=== PATIENT | male | born 1970 | race Caucasian/White ===

== ENCOUNTER 2018-07-02 06:21 | Day surgery (SDC) | payer OTHER ==
[2018-07-01 13:17] VITALS: BMI 27.1
[2018-07-02] MEDS ORDERED: MIDAZOLAM HCL 2 MG/2 ML SINGLE DOSE VIAL ONE ×3 (07:18→07:35)
[2018-07-02] MEDS ORDERED: PROPOFOL 20 ML ONE ×2 (07:35)
[2018-07-02] MEDS ORDERED: SUCCINYLCHOLINE CHLORIDE 200 MG/10 ML VIAL ONE (07:35)
--- NOTE | 2018-07-02 08:15 | HP ---
[facility]ellite [facility] - Chief Complaint Chief Complaint: right shoulder pain - Past Medical History Allergies/Adverse Reactions: Allergies Allergy/AdvReac Type Severity Reaction Status Date / Time Penicillins Allergy Unknown Verified 07/02/18 07:15 - Current Medications Current Medications: Home Medications Medication Instructions Recorded Alprazolam [Xanax] 0.25 mg PO PRN PRN 07/01/18 Simvastatin 40 mg PO HS 07/01/18 Satellite Physical Exam - Physical Examination Vital Signs: Vital Signs Period Temp Pulse Resp BP Sys/Garcia Pulse Ox Last 24 Hr 98.2 F-98.2 F 64-64 20-20 121-121/58-58 95 General Appearance: Well Nourished, Well Developed, Alert & Oriented x3 ENT: Clear Lung: Normal air movement Heart: Regular rate & rhythm Extremities: Other (right shoulder- + ttp, decr rom, + neer, + thompson, + empty can, nvi MRI + rct, labral tear) Neurological: Intact, Alert, Oriented Satellite Impression/Plan - Impression/Plan Impression: right shoulder impingement Operative Procedure: right shoulder arthroscopy with TAMMY MARIN Date to be Performed: 07/02/18
[2018-07-02] MEDS ORDERED: CLINDAMYCIN 900 MG PREMIX BAG IVPB ONE (08:28)
[2018-07-02] MEDS ORDERED: ONDANSETRON 4 MG/2 ML VIAL IVPUSH PRN (08:32)
[2018-07-02] MEDS ORDERED: ACETAMINOPHEN 1000 MG/100 ML VIAL (NON FORMULARY) IVPB ONE (08:32)
[2018-07-02] MEDS ORDERED: oxyCODONE HCL 5 MG TABLET PO PRN ×2 (08:32)
[2018-07-02] MEDS ORDERED: DEXAMETHASONE SOD PHOSPHATE 4 MG/1 ML VIAL ONE (08:35)
[2018-07-02] MEDS ORDERED: CLINDAMYCIN PHOSPHATE 600 MG/4 ML VIAL ONE (08:35)
[2018-07-02] MEDS ORDERED: LACTATED RINGERS SOLUTION 1,000 ML IV SCH (08:45)
[2018-07-02] MEDS ORDERED: ACETAMINOPHEN INJECTION 100 ML IVPB ONE (10:14)
[2018-07-02] MEDS ORDERED: ONDANSETRON 4 MG/2 ML VIAL ONE (10:14)
--- NOTE | 2018-07-02 10:15 | OP ---
Operative Note - Note: Operative Date: 07/02/18 Pre-Operative Diagnosis: right shoulder impingement, labral tear, OA Operation: right shoulder arthroscopy, subacromial decompression Findings: OA, Labral tear, no RTC tear Post-Operative Diagnosis: Same as Pre-op Surgeon: Adi Patten Data Entry Processor: Braydon Nicholson Anesthesiologist/SCHOOL TRANSPORTATION SUPERVISOR: Noemy Gerardo Anesthesia: General, Local Specimens Removed: shavings Estimated Blood Loss (mls): 30 Drains, Volume Out (mls): 0 Blood Volume Replaced (mls): 0 Fluid Volume Replaced (mls): 500 Operative Report Dictated: Yes
[2018-07-02 10:57] VITALS: TEMP 97.8
--- NOTE | 2018-07-02 11:13 | OP ---
DATE OF OPERATION: 07/02/2018 PREOPERATIVE DIAGNOSIS: Right shoulder impingement syndrome and labral tear, osteoarthritis. POSTOPERATIVE DIAGNOSIS: Right shoulder impingement syndrome and labral tear, osteoarthritis. PROCEDURE: Right shoulder arthroscopy, subacromial decompression. SURGEON: Adi Patten MD FOOD SERVICE SALES REPRESENTATIVES: Braydon Chapman MD ANESTHESIA: , ORDER ANALYST, right interscalene block with LMA anesthesia. DRAINS: None. COMPLICATIONS: None. SPECIMEN: Arthroscopic shavings. IMPLANTS: None. COMPLICATIONS: None. BLOOD LOSS: 30 mL. BLOOD GIVEN: None. FLUID REPLACEMENT: 500 mL Plasma-Lyte INDICATIONS: This patient is a 47-year-old right-hand dominant male with a preoperative diagnosis of right shoulder pain, impingement syndrome, osteoarthritis, and labral tear. After understanding the potential risks, complications, alternatives, and benefits to surgery versus nonsurgical treatment, the patient elected to undergo this procedure. DESCRIPTION OF PROCEDURE: The patient was brought to the operating room. Peripheral IV place. IV sedation given. Then 1 g of IV Ancef was given. Right interscalene block was performed. LMA anesthesia was induced. He was placed into the beach chair position with ample padding throughout. The right upper extremity was prepped and draped in the usual sterile fashion. The bony landmarks were marked out with a marking pen. Posterior portal was established. Diagnostic glenohumeral arthroscopy was performed. The patient was seen to have some significant areas of osteoarthritis of both the humeral head and the glenoid. There was an area about the size of a nickel of grade 4 osteoarthritis of the glenoid anteriorly near his SLAP lesion and the humeral head slightly larger than a quarter on the superolateral aspect of the humeral head. The patient did have a tear of the labrum, which was complete and from 1 o'clock to the 5 o'clock position. There was a piece of articular cartilage of the glenoid attached to this labral tear. Biceps tendon looked good. The rest of the biceps anchor looked good. The undersurface of the rotator cuff looked pristine with a normal bubble test. Photographs were taken throughout, but as per our preoperative agreement, the patient did not want anything fixed. He did not want to tolerate any time of immobilization, so the labral tear was photographed, documented, evaluated, and left alone. Next, our attention was turned to the subacromial space. The patient had a lot of inflammatory bursitis. A lateral portal was established under direct visualization using a spinal needle. A green cannula was introduced into the subacromial space. An ArthroCare wand was used to do a soft tissue bursectomy. After an extensive debridement, I was able to directly visualize a large subacromial bony spur. There was no spur on the undersurface of the clavicle. The spur was taken down with a 5.5-mm oval bur and fine-tuned in reverse and with the straight shaver. The area was copiously irrigated and washed out. All debris removed. Photographs taken of the subacromial decompression. I was then able to move the arm through a full range of motion, and on direct visualization, there was no impingement of the rotator cuff. The top surface of the rotator cuff also looked pristine with no tear or damage. The area was copiously irrigated and washed out. All instrumentation removed. Extra saline removed. Arthroscopy portal was closed with a 3-0 nylon suture. The area was then washed and dried and covered with a 4-inch Aquacel dressing. Sling was applied. He was extubated. Brought down out of the beach chair position. Brought to the ambulatory recovery room in stable condition. Total operative time was about 50 minutes. There were no complications during the case. The patient tolerated the procedure quite well. Total blood loss was 30 mL. BRAYDON CHAPMAN M.D. [id number]
[2018-07-02] MEDS ORDERED: oxyCODONE HCL 5 MG TABLET ONE (12:17)
[2018-07-02 12:30] VITALS: BP 131/87; PULSE 52
--- NOTE | 2018-07-03 16:54 | PATH ---
Surgical Pathology Report Patient Name: JIMMIE MCCLAIN Med. Rec. #: [id number] /Age/Gender: 1970 (Age: 47) / M Account: [id number] Location: [facility] SURGICAL Taken: 07/02/2018 Received: 07/02/2018 Reported: 07/03/2018 Physicians: Braydon Nicholson M.D. Specimen(s) Received RIGHT SHOULDER SHAVINGS Clinical History Right shoulder tear Final Diagnosis RIGHT SHOULDER SHAVINGS: FRAGMENTS OF BONE AND SYNOVIAL TISSUE WITH DEGENERATIVE CHANGE. SEPARATE FRAGMENTS OF UNREMARKABLE SKELETAL MUSCLE. Electronically Signed Cris Becerril M.D. Gross Description Received in formalin, labeled "right shoulder shavings," is a 5.0 x 3.5 x 0.6 cm. aggregate of borges-yellow soft tissue fragments. A customer service representative teacher portion is submitted in one cassette. /07/02/201807/02/2018
== END 2018-07-02 12:50 | disposition home or self-care (01) ==
LOC: JASU-SURG 06:21
PROVIDERS: ATTEND Orthopaedic Surgery
PROC: 0RBJ4ZZ Excision of Right Shoulder Joint, Percutaneous Endoscopic Approach (ICD-10-PCS; principal; 2018-07-02 08:00)
DX: M75.41 Impingement syndrome of right shoulder (principal); M19.011 Primary osteoarthritis, right shoulder
CPT/HCPCS: 88304-TC; 94760; J0131